=== PATIENT | male | born 1990 | race Caucasian/White ===

== ENCOUNTER 2017-03-26 10:06 | Emergency (ER) | payer MEDICAID ==
[~2017-03-26] VITALS: Ht 154.9 cm; Wt 60.8 kg
[~2017-03-26 10:06] MED LIST: BUPR75TA5; CELEXA; FISH OIL; FLUO10CA13
[2017-03-26] MEDS ORDERED: SODIUM CHLORIDE 0.9% 1,000 ML IV ONE (12:53)
[2017-03-26] MEDS ORDERED: SODIUM CHLORIDE FLUSH 10ML SYR IVF ONE (13:00)
[2017-03-26] MEDS ORDERED: ONDANSETRON 2MG/ML, 2ML IVPush ONE (13:00)
[2017-03-26] MEDS ORDERED: SODIUM CHLORIDE 0.9% 1,000ML IVBOLUS ONE (13:00)
[2017-03-26 13:10] LABS: BASOPHILS # (AUTO) 0.02 x10^3/uL (0-0.1); BASOPHILS % (AUTO) 0 % (0-1); EOSINOPHILS # (AUTO) 0.16 x10^3/uL (0-0.4); EOSINOPHILS % (AUTO) 2 % (1-7); LYMPHOCYTES # (AUTO) 1.73 x10^3/uL (1-3.4); LYMPHOCYTES % (AUTO) 24 % (22-44); MD NO; MEAN CORPUSCULAR HEMOGLOBIN 32.7 pg (27.5-34.5); MEAN CORPUSCULAR HGB CONC 33.6 g/dL (33.2-36.2); MEAN CORPUSCULAR VOLUME 97.3 fL (81-97); MEAN PLATELET VOLUME 8.2 fL (7.4-10.4); MONOCYTES # (AUTO) 0.58 x10^3/uL (0.2-0.8); MONOCYTES % (AUTO) 8 % (2-9); NEUTROPHILS # (AUTO) 4.73 x10^3/uL (1.8-6.8); NEUTROPHILS % (AUTO) 66 % (42-75); PLATELET COUNT 246 x10^3/uL (130-400); RED BLOOD COUNT 4.55 x10^6/uL (4.38-5.82); RED CELL DISTRIBUTION WIDTH 14.3 % (9.4-14.8)
[2017-03-26 13:13] LABS: MICROSCOPIC NOT IND
[2017-03-26 13:14] LABS: CULTURE INDICATED? NO
[2017-03-26 13:19] LABS: ALANINE AMINOTRANSFERASE 27 U/L (12-78); ALBUMIN 4.6 g/dL (3.4-5.0); ANION GAP 7 mmol/L (5-15); CALCIUM 9.3 mg/dL (8.5-10.1); CHLORIDE 107 mmol/L (98-107); CREATININE 0.88 mg/dL (0.7-1.3)
[2017-03-26 13:21] LABS: ALKALINE PHOSPHATASE 96 U/L (45-117); BILIRUBIN,TOTAL 0.1 mg/dL (0.2-1.0); TOTAL PROTEIN 8.1 g/dL (6.4-8.2)
[2017-03-26] MEDS ORDERED: ONDANSETRON 2MG/ML, 2ML ONE (14:01)
[2017-03-26] MEDS ORDERED: OMNIPAQUE 350 MG/ML, 100ML BOTTLE ONE (15:30)
[2017-03-26 16:14] VITALS: BP 137/77
== END 2017-03-26 16:16 | disposition home or self-care (01) ==
LOC: ED 12:35
DX: R10.31 Right lower quadrant pain (principal); R10.32 Left lower quadrant pain; R10.33 Periumbilical pain; G43.909 Migraine, unspecified, not intractable, without status migrainosus; M19.90 Unspecified osteoarthritis, unspecified site; G89.29 Other chronic pain; J45.909 Unspecified asthma, uncomplicated
CPT/HCPCS: 36415; 74177; 80053; 81003; 83690; 85025; 96361; 96374; 99285; J2405; J7030; Q9967

== ENCOUNTER 2017-12-21 14:07 | Emergency (ER) | payer SELFPAY ==
[~2017-12-21] VITALS: Ht 154.9 cm; Wt 63.0 kg
[2017-12-21 14:23] VITALS: BP 141/83
[2017-12-21] MEDS ORDERED: LISI-167 PO (14:40)
[2017-12-21] MEDS ORDERED: QUET150T PO (14:41)
[2017-12-21] MEDS ORDERED: SERT50TA PO (14:41)
[2017-12-21] MEDS ORDERED: LITH300T30 PO (14:41)
== END 2017-12-21 15:35 | disposition home or self-care (01) ==
LOC: ED 15:29
DX: M25.532 Pain in left wrist (principal); I10 Essential (primary) hypertension; G43.909 Migraine, unspecified, not intractable, without status migrainosus
CPT/HCPCS: 99284

== ENCOUNTER 2018-01-05 18:11 | Emergency (ER) | payer MEDICAID, OTHER ==
[~2018-01-05] VITALS: Ht 154.9 cm; Wt 62.6 kg
[~2018-01-05 18:11] MED LIST changes: +LISI-167 PO; +LITH300T30 PO; +QUET150T PO; +SERT50TA PO
[2018-01-05 18:24] VITALS: BP 136/96
== END 2018-01-05 18:57 | disposition home or self-care (01) ==
LOC: ED 18:45
DX: F99 Mental disorder, not otherwise specified (principal); Z76.0 Encounter for issue of repeat prescription; I10 Essential (primary) hypertension
CPT/HCPCS: 99283

== ENCOUNTER 2018-08-04 21:29 | Emergency (ER) | payer MEDICAID, OTHER ==
[~2018-08-04] VITALS: Ht 154.9 cm; Wt 56.7 kg
[~2018-08-04 21:29] MED LIST changes: -QUET150T PO; +QUET150T2 PO
[2018-08-04] MEDS ORDERED: ONDANSETRON 2MG/ML, 2ML ONE (21:59)
[2018-08-04] MEDS ORDERED: MORPHINE SULFATE 4 MG/ML, 1ML ONE (21:59)
[2018-08-04] MEDS ORDERED: ONDANSETRON 2MG/ML, 2ML IVPush ONE (22:00)
[2018-08-04] MEDS ORDERED: MORPHINE SULFATE 4 MG/ML, 1ML IVPush PRN (22:00)
--- NOTE | 2018-08-04 22:03 | NUR ---
PT MEDICATED PER MAR. POC DISCUSSED. PT AWARE A UA IS NEEDED HOWEVER PT STATES UNABLE TO PROVIDE ONE AT THIS TIME. PT AND MOTHER DENY FURTHER NEEDS AT THIS TIME.
[2018-08-04 22:07] LABS: BASOPHILS # (AUTO) 0.02 x10^3/uL (0-0.1); BASOPHILS % (AUTO) 0 % (0-1); EOSINOPHILS # (AUTO) 0.12 x10^3/uL (0-0.4); EOSINOPHILS % (AUTO) 1 % (1-7); LYMPHOCYTES # (AUTO) 0.86 x10^3/uL (1-3.4); LYMPHOCYTES % (AUTO) 9 % (22-44); MD NO; MEAN CORPUSCULAR HEMOGLOBIN 31.6 pg (27.5-34.5); MEAN CORPUSCULAR HGB CONC 33.2 g/dL (33.2-36.2); MEAN CORPUSCULAR VOLUME 95.2 fL (81-97); MEAN PLATELET VOLUME 8.4 fL (7.4-10.4); MONOCYTES # (AUTO) 0.52 x10^3/uL (0.2-0.8); MONOCYTES % (AUTO) 5 % (2-9); NEUTROPHILS # (AUTO) 8.59 x10^3/uL (1.8-6.8); NEUTROPHILS % (AUTO) 85 % (42-75); PLATELET COUNT 231 x10^3/uL (130-400); RED BLOOD COUNT 4.82 x10^6/uL (4.38-5.82)
[2018-08-04 22:14] LABS: ALANINE AMINOTRANSFERASE 20 U/L (12-78); ALBUMIN 4.2 g/dL (3.4-5.0); ANION GAP 6 mmol/L (5-15); CALCIUM 8.8 mg/dL (8.5-10.1); CHLORIDE 111 mmol/L (98-107); CREATININE 0.99 mg/dL (0.7-1.3)
[2018-08-04 22:17] LABS: ALKALINE PHOSPHATASE 100 U/L (45-117); BILIRUBIN,TOTAL 0.1 mg/dL (0.2-1.0); TOTAL PROTEIN 7.5 g/dL (6.4-8.2)
--- NOTE | 2018-08-04 22:50 | NUR ---
UA OBTAINED AND TUBED TO LAB. PT TO CT NOW.
[2018-08-04 22:59] LABS: MICROSCOPIC AUTO
[2018-08-04 23:00] LABS: CULTURE INDICATED? YES
[2018-08-04] MEDS ORDERED: OMNIPAQUE 350 MG/ML, 100ML BOTTLE ONE (23:04)
[2018-08-05 00:12] VITALS: BP 102/58
== END 2018-08-05 00:31 | disposition home or self-care (01) ==
LOC: ED 22:02
DX: R10.31 Right lower quadrant pain (principal); R10.33 Periumbilical pain; I10 Essential (primary) hypertension; G43.909 Migraine, unspecified, not intractable, without status migrainosus; J45.909 Unspecified asthma, uncomplicated
CPT/HCPCS: 36415; 74177; 80053; 81001; 83690; 85025; 87086; 96374; 96375; 99284; J2270; J2405; Q9967

== ENCOUNTER 2019-11-08 09:01 | Emergency (ER) | payer BC, OTHER ==
[~2019-11-08] VITALS: Ht 154.9 cm; Wt 58.0 kg
--- NOTE | 2019-11-08 09:15 | NUR ---
PT STATES SMOKE HAS IRRITATED HIS BREATHING DIFFICULTY W COUGH. PT HX OF ASTHMA. PT NOT IN RESP DISTRESS. VSS.
--- NOTE | 2019-11-08 09:48 | NUR ---
PT BACK TO ROOM FROM IMAGING
[2019-11-08 10:06] VITALS: BP 133/65
--- NOTE | 2019-11-08 11:12 | NUR ---
Patient/Caregiver given discharge instructions and they have confirmed that they understand the instructions. Patient ambulatory with steady gait.
== END 2019-11-08 11:14 | disposition home or self-care (01) ==
LOC: ED 10:41
DX: R06.00 Dyspnea, unspecified (principal); R07.89 Other chest pain; R11.10 Vomiting, unspecified; J45.909 Unspecified asthma, uncomplicated; I10 Essential (primary) hypertension; M19.90 Unspecified osteoarthritis, unspecified site; R94.31 Abnormal electrocardiogram [ECG] [EKG]; G89.29 Other chronic pain; F17.200 Nicotine dependence, unspecified, uncomplicated
CPT/HCPCS: 71046; 93005; 99283